=== PATIENT | male | born 1965 | race Caucasian/White ===

== ENCOUNTER 2022-11-12 21:39 | Emergency (ER) | payer BC ==
[~2022-11-12] VITALS: Ht 177.8 cm; Wt 106.6 kg
[2022-11-12] MEDS ORDERED: NITROGLYCERIN 2% OINT 1 GM UNIT DOSE PACKET TOP STA (22:01)
[2022-11-12] MEDS ORDERED: FAMOTIDINE 20 MG (PEPCID) TABLET PO STA (22:05)
--- NOTE | 2022-11-12 22:12 | ED Chest Pain ---
General Stated Complaint: DIABETIC, DRY HEAVES, DIZZY, Source: patient Exam Limitations: no limitations History of Present Illness Date Seen by Provider: Nov 12, 2022 Time Seen by Provider: 21:42 Initial Comments 57-year-old male with past medical history most notable for diabetes and hypertension coming in due to a couple hours of nausea, dry heaving, feeling lightheaded, and chest discomfort on the left side of his chest. He states this is happened a couple times in the past in his hometown, and when he went to the ER they noticed that his blood sugar was elevated. He states he has taken all of his medicines today like he is supposed to other than his insulin. Denies any cardiac history, although he states he is supposed to follow-up with a pulp roller. Denies any prior history of DVT or PE, no lower extremity swelling or pain, no recent surgery, no hormone use. Otherwise denying any other acute complaints including any fever, weakness, numbness, shortness of breath, cough, abdominal pain, or any other concerns. Allergies and Home Medications Allergies Coded Allergies: Penicillin G (Verified Allergy, Unknown, 07/27/06) Patient Home Medication List Home Medication List Reviewed: Yes Review of Systems Review of Systems Constitutional: No fever EENTM: No Blurred Vision Respiratory: Denies Cough Cardiovascular: Chest Pain Gastrointestinal: Nausea Genitourinary: No Symptoms Reported Musculoskeletal: no symptoms reported Skin: no symptoms reported Psychiatric/Neurological: No Symptoms Reported Endocrine: No Symptoms Reported Hematologic/Lymphatic: No Symptoms Reported All Other Systems Reviewed Negative Unless Noted: Yes Past [id number] Hx Patient Social History Tobacco Use?: Yes Past Medical History Surgeries: Yes Orthopedic Physical Exam Vital Signs Vital Signs - First Documented 11/12/22 21:50 Temp 36.6 Pulse 101 Resp 22 B/P (MAP) 211/123 (152) Pulse Ox 96 O2 Delivery Room Air Capillary Refill : Height, Weight, BMI Height: '" Weight: lbs. oz. kg; BMI Method: General Appearance: No Apparent Distress, WD/WN HEENT: PERRL/EOMI, Normal ENT Inspection, Pharynx Normal Neck: Full Range of Motion, Normal Inspection, Non Tender, Supple Respiratory: Chest Non Tender, Lungs Clear, Normal Breath Sounds, No Accessory Muscle Use, No Respiratory Distress Cardiovascular: Regular Rate, Rhythm, Normal Peripheral Pulses Gastrointestinal: Normal Bowel Sounds, Non Tender, Soft Extremity: Normal Capillary Refill, Normal Inspection, Normal Range of Motion, Non Tender, No Calf Tenderness, Pedal Edema Neurologic/Psychiatric: Alert, Oriented x3, No Motor/Sensory Deficits, Normal Mood/Affect Skin: Normal Color, Warm/Dry Lymphatic: No Adenopathy Progress/Results/Core Measures Results/Orders Lab Results Laboratory Tests Test 11/12/22 21:54 11/12/22 22:00 11/12/22 22:08 11/12/22 23:00 Range/Units Glucometer 196 H 70-110 MG/DL White Blood Count 8.8 4.3-11.0 10^3/uL Red Blood Count 4.44 4.30-5.52 10^6/uL Hemoglobin 14.9 13.3-17.7 g/dL Hematocrit 44 40-54 % Mean Corpuscular Volume 98 80-99 fL Mean Corpuscular Hemoglobin 34 25-34 pg Mean Corpuscular Hemoglobin Concent 34 32-36 g/dL Red Cell Distribution Width 13.3 10.0-14.5 % Platelet Count 276 130-400 10^3/uL Mean Platelet Volume 9.6 9.0-12.2 fL Immature Granulocyte % (Auto) 0 % Neutrophils (%) (Auto) 41 L 42-75 % Lymphocytes (%) (Auto) 46 H 12-44 % Monocytes (%) (Auto) 10 0-12 % Eosinophils (%) (Auto) 2 0-10 % Basophils (%) (Auto) 1 0-10 % Neutrophils # (Auto) 3.6 1.8-7.8 10^3/uL Lymphocytes # (Auto) 4.1 H 1.0-4.0 10^3/uL Monocytes # (Auto) 0.9 0.0-1.0 10^3/uL Eosinophils # (Auto) 0.1 0.0-0.3 10^3/uL Basophils # (Auto) 0.1 0.0-0.1 10^3/uL Immature Granulocyte # (Auto) 0.0 0.0-0.1 10^3/uL Prothrombin Time 12.5 12.2-14.7 SEC INR Comment 0.9 0.8-1.4 Activated Partial Thromboplast Time 29 24-35 SEC Sodium Level 141 135-145 MMOL/L Potassium Level 3.7 3.6-5.0 MMOL/L Chloride Level 104 98-107 MMOL/L Carbon Dioxide Level 22 21-32 MMOL/L Anion Gap 15 H 5-14 MMOL/L Blood Urea Nitrogen 14 7-18 MG/DL Creatinine 0.93 0.60-1.30 MG/DL Estimat Glomerular Filtration Rate 95 BUN/Creatinine Ratio 15 Glucose Level 236 H 70-105 MG/DL Calcium Level 8.8 8.5-10.1 MG/DL Corrected Calcium 8.8 8.5-10.1 MG/DL Magnesium Level 1.3 L 1.6-2.4 MG/DL Total Bilirubin 0.4 0.1-1.0 MG/DL Aspartate Amino Transf (AST/SGOT) 21 5-34 U/L Alanine Aminotransferase (ALT/SGPT) 23 0-55 U/L Alkaline Phosphatase 100 40-136 U/L Troponin I < 0.028 < 0.028 <0.028 NG/ML B-Type Natriuretic Peptide 49.3 <100.0 PG/ML Total Protein 7.5 6.4-8.2 GM/DL Albumin 4.0 3.2-4.5 GM/DL Lipase 44 8-78 U/L Influenza Type A (RT-PCR) Not Detected Not Detecte Influenza Type B (RT-PCR) Not Detected Not Detecte SARS-CoV-2 RNA (RT-PCR) Not Detected Not Detecte My Orders Orders - EDGAR BASURTO MD Cbc With Automated Diff (11/12/22 22:01) Magnesium (11/12/22 22:01) Chest 1 View, Ap/Pa Only (11/12/22 22:01) Ekg Tracing (11/12/22 22:01) Comprehensive Metabolic Panel (11/12/22 22:01) Protime With Inr (11/12/22 22:01) Partial Thromboplastin Time (11/12/22 22:01) Monitor-Rhythm Ecg Trace Only (11/12/22 22:01) Ed Iv/Invasive Line Start (11/12/22 22:01) Lipase (11/12/22 22:01) Bnp Oneil (11/12/22 22:01) Troponin I Oliver (11/12/22 22:01) Nitroglycerin 0.4 Mg Btl 25's (Nitrostat (11/12/22 22:15) Nitroglycerin Ointment (Nitrobid Ointme (11/12/22 22:01) Aspirin Chewable Tablet (Baby Aspirin Ch (11/12/22 22:15) Ondansetron Injection (Zofran Injectio (11/12/22 22:15) Accucheck Stat ONCE (11/12/22 22:01) Lidocaine 2% Viscous 15 Ml (Xylocaine Vi (11/12/22 22:15) Famotidine Tablet (Pepcid Tablet) (11/12/22 22:05) Antacid Suspension (Mylanta Suspension (11/12/22 22:15) Influenza A And B By Pcr (11/12/22 22:08) Covid 19 Inhouse Test (11/12/22 22:08) Troponin I Oneil (11/12/22 23:00) Promethazine Tablet (Phenergan Tablet) (11/12/22 23:30) Lisinopril Tablet (Zestril Tablet) (11/13/22 00:00) Rx-Ondansetron Po (Rx-Zofran Po) (11/12/22 23:58) Medications Given in ED Current Medications Medications Dose Ordered Sig/Marcelo Route Start Time Stop Time Status Last Admin Dose Admin Al Hydrox/Mg Hydrox/Simethicone 30 ml ONCE ONCE PO 11/12/22 22:15 11/12/22 22:16 DC 11/12/22 22:19 30 ML Aspirin 324 mg ONCE ONCE PO 11/12/22 22:15 11/12/22 22:16 DC 11/12/22 22:15 324 MG Lidocaine HCl 15 ml ONCE ONCE PO 11/12/22 22:15 11/12/22 22:16 DC 11/12/22 22:19 15 ML Nitroglycerin 0.4 mg UD PRN SL 11/12/22 22:15 11/12/22 22:16 0.4 MG Ondansetron HCl 4 mg ONCE ONCE IVP 11/12/22 22:15 11/12/22 22:16 DC 11/12/22 22:14 4 MG Promethazine HCl 25 mg ONCE ONCE PO 11/12/22 23:30 11/12/22 23:31 DC 11/12/22 23:31 25 MG Vital Signs/I&O 11/12/22 21:50 Temp 36.6 Pulse 101 Resp 22 B/P (MAP) 211/123 (152) Pulse Ox 96 O2 Delivery Room Air Progress Progress Note : Progress Note 57-year-old male presenting for nausea, dry heaving, and later chest discomfort. ABCs were intact and vitals were stable on presentation although he is hypertensive. He states he believes he left his lisinopril at home in [place], [place] and did not take it today. We we will give him his home dose. Give him full dose aspirin. EKG with no ischemic changes. An IV was placed and basic labs were obtained and were significant for negative troponin x2. After GI cocktail, he states his pain essentially is gone. If he pushes on his chest in 1 spot with his finger, he can recreate the pain and that is the only time he hurts anymore. If he is not pushing on it, he does not have any discomfort. U nlikely to be ACS given the story in 2 negative troponins, especially given pain better. He is otherwise low risk for a PE and showing no signs of a DVT on exam. Chest x-ray clear on my interpretation. I believe he stable for discharge with outpatient follow-up. He was sent home with strict return precautions. Initial ECG Impression Date: Nov 12, 2022 Initial ECG Impression Time: 22:06 Initial ECG Rate: 95 Initial ECG Rhythm: Normal Sinus Comment Narrow QRS, normal axis, no significant ST changes or T wave abnormality Diagnostic Imaging Diagonstic Imaging: Xray (chest) Comments On my interpretation no pneumothorax, no pleural effusion, normal cardiac silhouette, no obvious pneumonia Departure Impression Primary Impression: Chest pain Qualified Codes: R07.82 - Intercostal pain Additional Impression: Dry heaves Disposition: 01 HOME, SELF-CARE Condition: Improved Departure-Patient Inst. Decision time for Depature: 00:01 Referrals: NO,LOCAL PHYSICIAN (PCP) Primary Care Physician Patient Instructions: Chest Pain (DC) Add. Discharge Instructions: Please follow-up with a pulp roller as soon as possible. If you develop pain like this when you are exerting yourself, be sure to rest and stop what you are doing. Take at least a baby aspirin daily. If things worsen or you have any concerns then please call 911 or go back to the ER EDGAR BASURTO MD Nov 12, 2022 22:12
[2022-11-12] MEDS ORDERED: ANTACID SUSP 30 ML UDC (MYLANTA) PO ONE (22:15)
[2022-11-12] MEDS ORDERED: NITROGLYCERIN 0.4 MG SL TABS BTL 25'S SL PRN (22:15)
[2022-11-12] MEDS ORDERED: ONDANSETRON 4 MG/2 ML (SDV) Z0FRAN IVP ONE (22:15)
[2022-11-12] MEDS ORDERED: ASPIRIN 81 MG CHEW (CHILDREN'S ASA) PO ONE (22:15)
[2022-11-12] MEDS ORDERED: LIDOCAINE 2% VISCOUS 15 ML UDC PO ONE (22:15)
[2022-11-12 22:16] LABS: BASOPHILS # (AUTO) 0.1 10^3/uL (0.0-0.1); BASOPHILS % (AUTO) 1 % (0-10); EOSINOPHILS # (AUTO) 0.1 10^3/uL (0.0-0.3); EOSINOPHILS % (AUTO) 2 % (0-10); HEMATOCRIT 44 % (40-54); HEMOGLOBIN 14.9 g/dL (13.3-17.7); LYMPHOCYTES # (AUTO) 4.1 10^3/uL (1.0-4.0); LYMPHOCYTES % (AUTO) 46 % (12-44); MEAN CORPUSCULAR HEMOGLOBIN 34 pg (25-34); MEAN CORPUSCULAR HGB CONC 34 g/dL (32-36); MEAN CORPUSCULAR VOLUME 98 fL (80-99); MEAN PLATELET VOLUME 9.6 fL (9.0-12.2); MONOCYTES # (AUTO) 0.9 10^3/uL (0.0-1.0); MONOCYTES % (AUTO) 10 % (0-12); NEUTROPHILS # (AUTO) 3.6 10^3/uL (1.8-7.8); NEUTROPHILS % (AUTO) 41 % (42-75); PLATELET COUNT 276 10^3/uL (130-400); WHITE BLOOD COUNT 8.8 10^3/uL (4.3-11.0)
[2022-11-12 22:22] LABS: POTASSIUM 3.7 MMOL/L (3.6-5.0)
[2022-11-12 22:23] LABS: CALCIUM 8.8 MG/DL (8.5-10.1)
[2022-11-12 22:24] LABS: TOTAL PROTEIN 7.5 GM/DL (6.4-8.2)
[2022-11-12 22:26] LABS: BILIRUBIN,TOTAL 0.4 MG/DL (0.1-1.0)
[2022-11-12 22:28] LABS: CREATININE SERUM 0.93 MG/DL (0.60-1.30)
[2022-11-12 22:30] LABS: MAGNESIUM 1.3 MG/DL (1.6-2.4)
[2022-11-12 22:35] LABS: INR 0.9 (0.8-1.4); PROTHROMBIN TIME PATIENT 12.5 SEC (12.2-14.7)
[2022-11-12] MEDS ORDERED: PROMETHAZINE 25 MG (PHENERGAN) TAB PO ONE (23:30)
[2022-11-12] MEDS ORDERED: RX-ONDANSETRON 4 MG ODT (ZOFRAN) PPK #4 PO STA (23:58)
[2022-11-13] MEDS ORDERED: lisINopril 20 MG (PRINIVIL) TABLET PO ONE
[2022-11-13 00:24] VITALS: BP 183/105
--- NOTE | 2022-11-13 07:01 | Diagnostic Imaging Report ---
INDICATION: Chest pain. Time of Exam: 10:21 PM Comparison is made with prior chest of 01/01/2013. FINDINGS: The heart size is normal. The pulmonary vascularity is unremarkable. The lungs are clear. No infiltrate, effusion or pneumothorax is detected. IMPRESSION: No acute cardiopulmonary process is detected. Dictated by: Dictated on workstation # [id number]
== END 2022-11-13 00:24 | disposition home or self-care (01) ==
LOC: EDUNIT# 21:39 → ER 21:43
DX: R07.89 Other chest pain (principal); R11.2 Nausea with vomiting, unspecified; I10 Essential (primary) hypertension; Z20.822 Contact with and (suspected) exposure to COVID-19
CPT/HCPCS: 36415; 71045; 80053; 82947; 83690; 83735; 83880; 84484; 85025; 85610; 85730; 87636; 93005; 93041